=== PATIENT | female | born 1975 | race Caucasian/White ===

== ENCOUNTER → 2020-04-17 16:38 | Outpatient (REF) | payer OTHER, SELFPAY | LOC: ANHLAB 16:38 | PROVIDERS: PCP Family Medicine; Visit Provider Nurse Practitioner Family | DX: D22.5 Melanocytic nevi of trunk (principal) | CPT/HCPCS: 88305 ==

== ENCOUNTER → 2020-05-31 15:56 | Outpatient (CLI) | payer OTHER, SELFPAY ==
--- NOTE | ~2020-05-31 | MM_ITS ---
EXAMINATION: MM scrn rosa implant BI w manuela HISTORY: Screening mammogram TECHNIQUE: Craniocaudal and mediolateral oblique 3-D tomosynthesis images with implant displacement a nd synthetic 2-D images were generated. Craniocaudal and mediolateral oblique views of the breasts wi thout implant displacement were obtained using full field digital mammography. CAD analysis was submi tted and interpreted. COMPARISON: Comparison to multiple prior studies sequentially, with oldest reviewed study dated 12/2010. BREAST PARENCHYMAL COMPOSITION: There are scattered areas of fibroglandular density. FINDINGS: There are bilateral breast implants. There is no evidence of suspicious mass, calcification , or architectural distortion to suggest malignancy in either breast. There has been no suspicious in terval change. IMPRESSION: 1. No mammographic evidence of malignancy. 2. Recommend routine screening mammography in one year. BI-RADS Category 1: Negative Reviewed, dictated and finalized at location A.
== END ==
PROVIDERS: Visit Provider Obstetrics & Gynecology
DX: Z12.31 Encounter for screening mammogram for malignant neoplasm of breast (principal)
CPT/HCPCS: 77063; 77067

== ENCOUNTER → 2021-02-03 15:51 | Outpatient (REF) | payer OTHER, SELFPAY | LOC: ANHLAB 15:51 | PROVIDERS: PCP Family Medicine; Visit Provider Nurse Practitioner | DX: D22.5 Melanocytic nevi of trunk (principal) | CPT/HCPCS: 88305 ==

== ENCOUNTER → 2021-04-21 00:37 | Outpatient (CLI) | payer OTHER, SELFPAY | PROVIDERS: Visit Provider Obstetrics & Gynecology | DX: Z01.812 Encounter for preprocedural laboratory examination (principal); Z20.822 Contact with and (suspected) exposure to COVID-19 | CPT/HCPCS: C9803; U0003; U0005 ==

== ENCOUNTER 2021-04-21 08:15 | Outpatient (CLI) | payer OTHER, SELFPAY | END 2021-04-21 08:16 | disposition home or self-care (01) | PROVIDERS: Visit Provider Obstetrics & Gynecology | DX: N92.1 Excessive and frequent menstruation with irregular cycle (principal); Z01.818 Encounter for other preprocedural examination | CPT/HCPCS: 36415; 86850; 86900; 86901 ==

== ENCOUNTER 2021-04-23 00:43 | Day surgery (SDC) | payer OTHER, SELFPAY ==
[2021-04-09 10:47] VITALS: BMI 23.1
[2021-04-23] VITALS (14 sets, daily range): BP systolic 102–130; BP diastolic 63–81; PULSE 51–72; RESP 12–20; TEMP 36.3–36.4; O2SAT 96–100; BMI 23.6
--- NOTE | 2021-04-23 10:16 | PM.IMHP ---
H&P: HPI History of Present Illness Date/Time: 04/23/21 10:16 45-year-old 2 para 2002 female presents with complaints of menstrual cycles lasting 5-7 days 3-5 days heavy clotting cramping to the point of bleeding through her clothes and sheets at night. This has been affecting her lifestyle on unable to continue with her normal daily activities. She has been on control pills which did help for a short appeared of time but they are no longer helping. Ultrasound revealed mildly enlarged uterus but no other specific abnormalities. We did discuss other issues and other treatments but she does tired desire to proceed with definitive therapy in the form of hysterectomy. Chief Complaint: Menometrorrhagia Review of Systems Review of Systems: All systems reviewed & are unremarkable except as noted in HPI and below PMFSH Past Medical History Medical History Anxiety BMI 24.0-24.9, adult IBS (irritable bowel syndrome) Surgical History Surgical History History of breast augmentation 2002 History of delivery 2008 History of cholecystectomy 1994 History of tubal ligation 2013 Family History Family History Mother Diabetes mellitus Hypertension Father Diabetes mellitus Hypertension Sibling No problems noted. 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 Gender identity (if verbalized by the patient): Female Spiritual care concerns: No Meds Home Medications and Allergies Home Medications Medication Instructions Recorded Confirmed Type phentermine 37.5 mg tablet 37.5 mg PO DAILY #20 tablet 03/26/21 04/09/21 Rx buspirone 10 mg PO BID 04/09/21 04/09/21 History linaclotide [Linzess] 290 mcg PO DAILY 04/09/21 04/09/21 History multivitamin 1 tablet PO DAILY 04/09/21 04/09/21 History norgestimate-ethinyl estradiol 2 tablet PO HS 04/09/21 04/09/21 History [Estarylla] Allergies Allergy/AdvReac Type Severity Reaction Status Date / Time codeine Allergy Unknown Nausea Verified 04/23/21 10:19 Exam Const: General: cooperative and healthy appearing Resp: Effort & Inspection: normal respiratory effort Auscultation: clear to auscultation bilaterally Cardio: Rate: regular rate Rhythm: regular rhythm GI: Inspection: normal to inspection : External Female Exam: normal external appearance Speculum Exam - Cervix: Cervical os closed Bimanual exam- vagina & uterus: normal bimanual exam and enlarged ( 10-12 week size) Bimanual Exam- Adnexa, other: normal adnexae Assessment and Plan Assessment and plan (1) Menometrorrhagia: Code(s): N92.1 - Excessive and frequent menstruation with irregular cycle Status: Acute (2) Enlarged uterus: Code(s): N85.2 - Hypertrophy of uterus Status: Acute Additional Plan 1. Proceed with robotic assisted hysterectomy. Due to prior section we have discussed the potential for bladder damage with repair intraoperatively and or conversion to open procedure though this would be unlikely.
--- NOTE | 2021-04-23 10:20 | WPDHPUPDATE1 ---
History and Physical Update Update Date/Time: 04/23/21 10:20 History and Physical has been reviewed, including an updated exam of the patient. There are NO changes in the patient's condition. Risks, benefits, and alternatives have been discussed and questions answered. Patient agrees to proceed with procedure.
[2021-04-23] MEDS: LACTATED RINGERS 1,000 ML 30 ML IV CONT ×2 (10:36→14:05)
[2021-04-23] MEDS: KETOROLAC 15 MG/ML VIAL (*BKC) IV PUSH (10:37)
[2021-04-23] MEDS: ACETAMINOPHEN 500 MG TABLET 1000 MG PO (10:37)
--- NOTE | 2021-04-23 10:49 | SUR.PREOP ---
DR FLETCHER INTO SEE PT. SIG OTHER AT BEDSIDE. BOTH AWARE THAT SURGERY IS DELAYED APPROX 30 MINUTES.
--- NOTE | 2021-04-23 11:19 | WPDANESEPPF ---
Anes - Initial Pre Proc Eval Procedure: Operation Date: 04/23/21 12:00 Proposed Procedures p Robotic Assisted Total Laparoscopic Hysterectomy - Yogi Lazo MD Date/Time: 04/23/21 11:19 Surgeon: Yogi Lazo MD Pre Op Diagnosis: menometrorrhagia Patient Data Age: 45 Gender: F Height: 1.63 m Weight: 62.5 kg Last Vital Signs Temp 97.6 F 04/23/21 10:46 Pulse 72 04/23/21 10:46 Resp 16 04/23/21 10:46 BP 130/81 04/23/21 10:46 Pulse Ox 99 04/23/21 10:46 Allergies Allergy/AdvReac Type Severity Reaction Status Date / Time codeine AdvReac Unknown Nausea Verified 04/23/21 10:49 Home Medications Medication Instructions Recorded Confirmed Type phentermine 37.5 mg tablet 37.5 mg PO DAILY #20 tablet 03/26/21 04/23/21 Rx buspirone 10 mg PO BID 04/09/21 04/23/21 History linaclotide [Linzess] 290 mcg PO DAILY 04/09/21 04/23/21 History multivitamin 1 tablet PO DAILY 04/09/21 04/23/21 History norgestimate-ethinyl estradiol 2 tablet PO HS 04/09/21 04/23/21 History [Estarylla] Patient hx anesthesia problems: post op nausea/vomiting Family hx anesthesia problems: none PMFSH Past Medical History Medical History Anxiety BMI 24.0-24.9, adult IBS (irritable bowel syndrome) Surgical History Surgical History History of breast augmentation 2003 History of delivery 2009 History of cholecystectomy 1994 History of tubal ligation 2013 Family History Family History Mother Diabetes mellitus Hypertension Father Diabetes mellitus Hypertension Sibling No problems noted. 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 Questions were solicited and answers provided to the satisfaction of the patient/family/POA.
[2021-04-23] MEDS: SCOPOLAMINE 1.5 MG PATCH TRANSDERM (11:24)
[2021-04-23] MEDS: ceFAZolin 2 GM/D5W 50 ML 2 GM/50 ML BAG IVPB (12:29)
--- NOTE | 2021-04-23 13:50 | PM.OP ---
Procedure Note - Brief Procedure Note - Brief Date of procedure: 04/23/21 Pre-op diagnosis: menometrorrhagia 2. Enlarged uterus Post-op diagnosis: same Procedure performed: 1. Robotic assisted laparoscopic hysterectomy with ovarian preservation Description of procedure: Patient prepped and draped in usual manner for this procedure. Cervical was replaced for uterine mobility later in the place. Abdominal trocar sites were marked and placed under direct visualization. At trocars then tested the Aimee system instruments were placed without difficulty. Enlarged uterus was noted. Round ligaments cauterized and cut bladder flap developed posterior leaf of the broad ligament was also incised to skeletonize the uterine vessels. Utero-ovarian ligament was cauterized and cut to allow the ovary to fall out of the operative field posterior leafs of the broad ligament was also incised posteriorly to separate. Uterine vessels were then were skeletonized cauterized and cut. Posterior cul-de-sac was then entered and this was carried circumferentially to separate the cervix from the vagina. Uterus was delivered into the vagina and the cuff was then closed using V Lock suture from the right angle midline and left angle midline with good approximation and hemostasis noted. Irrigation was undertaken with no bleeding. Nabeel was placed empirically over the vaginal cuff. This point the gas allowed to escape incisions approximated using 4 Monocryl after the trocars removed. Anesthesia: GETA Surgeon: Yogi Lazo MD Drains: No Packing: No Pathology: yes Complications: No immediate complications Disposition: PACU Findings: 1. Enlarged uterus 2. Minimal adhesions of the bladder to the anterior cervix. 3. Ovaries without abnormality and tubes with evidence of prior tubal ligation.
[2021-04-23] MEDS: fentaNYL CITRATE INJ (*CRX) 100 MCG/2 ML VIAL 25 MCG IV PUSH ×4 (14:25→15:06)
--- NOTE | 2021-04-23 15:53 | PC.NURSE ---
This patient, Danyelle Mcmillan, was received from PACU per bed ] on 04/23/21 at 1553. Patient/family oriented to unit policies and routines
[2021-04-23] MEDS: DEXTROSE 5%/LACTATED RINGERS 1,000 ML 125 ML IV CONT (16:15)
[2021-04-23] MEDS: KETOROLAC 30 MG/ML VIAL (*BKC) IV PUSH ×2 (16:16→22:55)
[2021-04-23] MEDS: HYDROcodone/acetaminophen (*CRX) 10-325 MG TABLET 1 TAB PO ×2 (17:33→20:54)
[2021-04-23] MEDS: ONDANSETRON INJ 4 MG/2 ML VIAL IV PUSH (18:50)
[2021-04-23] MEDS: busPIRone HCL 10 MG TABLET PO (20:54)
--- NOTE | 2021-04-23 21:55 | PC.NURSE ---
Assisted pt to restroom where she was only able to void 50ml nayeli urine at this time. Pt declines wanting to have a bladder scan at this time stating she feels much better after ambulating to restroom and voiding. Pt is tolerating po fluids with no vomitting thus far after receiving iv zofran for some nausea earlier in the shift. No bladder distention noted at this time. IVF's continue at this time and encouraged po intake as tolerated. Will continue to monitor.
[2021-04-24] VITALS: PULSE 64; RESP 16; O2SAT 97
[2021-04-24] MEDS: HYDROcodone/acetaminophen (*CRX) 10-325 MG TABLET 1 TAB PO ×4 (00:01→13:26)
[2021-04-24 00:16] VITALS: BP 101/69; PULSE 64; RESP 16; TEMP 36.7; O2SAT 97
[2021-04-24] MEDS: DEXTROSE 5%/LACTATED RINGERS 1,000 ML 125 ML IV CONT (00:37)
[2021-04-24 04:30] VITALS: BP 101/70; PULSE 62; RESP 16; TEMP 36.7; O2SAT 95
[2021-04-24] MEDS: ONDANSETRON INJ 4 MG/2 ML VIAL IV PUSH (04:50)
[2021-04-24] MEDS: IBUPROFEN 600 MG TABLET PO ×2 (04:51→13:27)
[2021-04-24] MEDS: SIMETHICONE 80 MG TAB.CHEW PO ×3 (04:51→13:28)
[2021-04-24 05:23] LABS: Basophils Percent Auto 0.4 % (0.2-1.2); Eosinophils Percent Auto 0.4 % (0-4.4); Hematocrit 34.9 % (37.0-47.0); Hemoglobin 11.6 g/dL (12.0-15.0); Immature Granulocyte Absolute 0.02 K/mm3 (0.00-0.031); Immature Granulocyte Percent A 0.2 % (0-0.5); Lymphocytes Absolute Auto 0.76 K/mm3 (0.9-3.2); Lymphocytes Percent Auto 9.3 % (18.3-44.2); Mean Corpuscular HGB Conc 33.2 g/dl (32-36); Mean Corpuscular Hemoglobin 30.3 pg (26-34); Mean Corpuscular Volume 91.1 fl (80-100); Monocytes Absolute Auto 0.5 K/mm3 (0.1-0.6); Monocytes Percent Auto 5.8 % (2.6-8.5); Neutrophils Absolute Auto 6.9 K/mm3 (1.3-6.7); Neutrophils Percent Auto 83.9 % (45.5-73.1); Platelet Count Result 257 k/mm3 (150-375); Red Blood Count 3.83 M/mm3 (4.2-5.4); Red Cell Distribution Width 12.9 % (11.5-14.5); White Blood Count 8.2 K/mm3 (4.5-10.0)
--- NOTE | 2021-04-24 06:39 | PM.DS ---
DS: Admitting Diagnosis Admitting Diagnosis Admitting Diagnosis: menometorrhagia DS: Discharge Diagnosis Discharge Diagnosis (1) Menometrorrhagia: Code(s): N92.1 - Excessive and frequent menstruation with irregular cycle Status: Acute DS: Summary Hospital Course Hospital Course: POD 1. No bleed or sig pain. Some RUQ irritation. Surgical site pain minimal. Exam benign Time Spent with Patient Time attestation: Total time spent providing and/or coordinating discharge services: DS: Data Data Completed and Pending Pending studies at discharge: Pending at discharge 04/23/21 13:34 Surgical [PTH] Routine Labs on day of discharge: Labs from last 24 hours 04/24/21 04:59 WBC 8.2 RBC 3.83 L Hgb 11.6 L Hct 34.9 L MCV 91.1 MCH 30.3 MCHC 33.2 RDW 12.9 Plt Count 257 MPV 10.0 Immature Gran % (Auto) 0.2 Neut % (Auto) 83.9 H Lymph % (Auto) 9.3 L [place] % (Auto) 5.8 Eos % (Auto) 0.4 Baso % (Auto) 0.4 Lymph # (Auto) 0.76 L [place] # (Auto) 0.5 Eos # (Auto) 0.0 Baso # (Auto) 0.0 Abs Immat Gran (auto) 0.02 Absolute Neuts (auto) 6.9 H Absolute Nucleated RBC 0.0 Nucleated RBC % 0.0 Discharge Plan Discharge Patient Disposition: Home, Self-Care Stand Alone Forms: General Discharge Instructions Follow-up/Referrals: Yogi Lazo MD [Physician] - 2 Weeks Discharge Medications: New hydrocodone-acetaminophen 5-325 mg Tablet 1 tablet PO Q3H Qty: 30 RF: 0 ibuprofen 600 mg Tablet 600 mg PO Q6H Qty: 30 RF: 0 Continued multivitamin Tablet 1 tablet PO DAILY RF: 0 buspirone 10 mg tablet 10 mg PO BID RF: 0 Linzess 290 mcg capsule 290 mcg PO DAILY RF: 0 phentermine 37.5 mg tablet 37.5 mg PO DAILY Qty: 20 RF: 0 Discontinued norgestimate-ethinyl estradiol [Estarylla] 0.25-35 mg-mcg tablet 2 tablet PO HS RF: 0
[2021-04-24 07:50] VITALS: PULSE 86; RESP 22; O2SAT 98
--- NOTE | 2021-04-24 08:38 | WPDANESPN ---
Anes - Prog Note Post-Op Date/Time: 04/24/21 08:38 Cardiovascular status: normal Respiratory status: normal Airway patency: baseline Mental status: baseline Post-Op hydration status: normal Vital Signs: Last Vital Signs Temp 36.7 C 04/24/21 04:30 Pulse 62 04/24/21 04:30 Resp 16 04/24/21 04:30 BP 101/70 04/24/21 04:30 Pulse Ox 95 04/24/21 04:30 Pain Score (VAS): 0/10. Patient resting in bed at time of assessment, appears comfortable. Pt complaint of mild nausea with relief with PRN meds. I/O: Intake & Output 04/23/21 04/24/21 04/24/21 23:59 07:59 15:59 Intake Total 410 2240 Output Total 50 350 Balance 360 1890 Laboratory Tests 04/24/21 04:59 04/24/21 04:59 WBC 8.2 RBC 3.83 L Hgb 11.6 L Hct 34.9 L MCV 91.1 MCH 30.3 MCHC 33.2 RDW 12.9 Plt Count 257 MPV 10.0 Immature Gran % (Auto) 0.2 Neut % (Auto) 83.9 H Lymph % (Auto) 9.3 L [place] % (Auto) 5.8 Eos % (Auto) 0.4 Baso % (Auto) 0.4 Lymph # (Auto) 0.76 L [place] # (Auto) 0.5 Eos # (Auto) 0.0 Baso # (Auto) 0.0 Abs Immat Gran (auto) 0.02 Absolute Neuts (auto) 6.9 H Absolute Nucleated RBC 0.0 Nucleated RBC % 0.0 Post-procedural complaints: nausea (mild, relief with prn meds. ) Patient Feedback: Patient satisfied with anesthetic care.
[2021-04-24 08:51] VITALS: BP 103/74; PULSE 86; RESP 22; TEMP 36.7; O2SAT 98
[2021-04-24] MEDS: DOCUSATE SODIUM 100 MG CAPSULE (10:11)
[2021-04-24] MEDS: busPIRone HCL 10 MG TABLET PO (10:12)
== END 2021-04-24 13:45 | disposition home or self-care (01) ==
LOC: ANHSURGERY 14:59 → ANHOB2 16:14
PROVIDERS: PCP Family Medicine; Visit Provider Obstetrics & Gynecology
PROC: (CPT 58570; principal; 2021-04-23 12:00)
DX: N92.1 Excessive and frequent menstruation with irregular cycle (principal); N80.0 Endometriosis of uterus; D25.1 Intramural leiomyoma of uterus; D25.2 Subserosal leiomyoma of uterus; N73.6 Female pelvic peritoneal adhesions (postinfective); K58.9 Irritable bowel syndrome, unspecified; F41.9 Anxiety disorder, unspecified; Z87.891 Personal history of nicotine dependence
CPT/HCPCS: 58570; S2900; 36415; 85025; 86850; 86900; 86901; 88307; 99199; A9270; J0690; J1100; J1170; J1885; J2250; J2405; J2704; J2710; J3010; J7030; J7120; J7121

== ENCOUNTER → 2021-06-02 16:33 | Outpatient (CLI) | payer OTHER, SELFPAY ==
--- NOTE | ~2021-06-02 | MM_ITS ---
EXAMINATION: MM scrn rosa implant BI w manuela HISTORY: Screening mammogram TECHNIQUE: Craniocaudal and mediolateral oblique 3-D tomosynthesis images with implant displacement a nd synthetic 2-D images were generated. Craniocaudal and mediolateral oblique views of the breasts wi thout implant displacement were obtained using full field digital mammography. CAD analysis was submi tted and interpreted. COMPARISON: Comparison to multiple prior studies sequentially, with oldest reviewed study dated 09/02. BREAST PARENCHYMAL COMPOSITION: Breast composed of scattered areas of fibroglandular density FINDINGS: There is no evidence of suspicious mass, calcification, or architectural distortion to sugg est malignancy in either breast. There has been no suspicious interval change. IMPRESSION: 1. No mammographic evidence of malignancy. 2. Recommend routine screening mammography in one year. BI-RADS Category 1: Negative Reviewed, dictated and finalized at location A.
== END ==
PROVIDERS: Visit Provider Obstetrics & Gynecology
DX: Z12.31 Encounter for screening mammogram for malignant neoplasm of breast (principal)
CPT/HCPCS: 77063; 77067

== ENCOUNTER → 2022-09-09 17:01 | Outpatient (CLI) | payer OTHER, SELFPAY ==
--- NOTE | ~2022-09-09 | MM_ITS ---
EXAMINATION: MM scrn rosa implant BI w manuela HISTORY: Screening mammogram TECHNIQUE: Craniocaudal and mediolateral oblique 3-D tomosynthesis images with implant displacement a nd synthetic 2-D images were generated. Craniocaudal and mediolateral oblique views of the breasts wi thout implant displacement were obtained using full field digital mammography. CAD analysis was submi tted and interpreted. COMPARISON: 06/02/2021, 05/31/2020, 10/03/2018 bilateral implant screening mammogram examinations BREAST PARENCHYMAL COMPOSITION: There are scattered areas of fibroglandular density. FINDINGS: Status post bilateral augmentation mammoplasty. There is no evidence of suspicious mass, ca lcification, or architectural distortion to suggest malignancy in either breast. There has been no sun spicious interval change. IMPRESSION: 1. No mammographic evidence of malignancy. 2. Recommend routine screening mammography in one year. BI-RADS Category 1: Negative Reviewed, dictated and finalized at location A. CLE BODY SANDER
== END ==
PROVIDERS: PCP Family Medicine; Visit Provider Obstetrics & Gynecology
DX: Z12.31 Encounter for screening mammogram for malignant neoplasm of breast (principal)
CPT/HCPCS: 77063; 77067

== ENCOUNTER 2023-03-15 12:08 | Outpatient (NON) | payer OTHER, SELFPAY | END 2023-03-15 12:09 | disposition home or self-care (01) | LOC: ANHLAB 03-17 12:10 | PROVIDERS: PCP Family Medicine; Visit Provider Nurse Practitioner | DX: D22.5 Melanocytic nevi of trunk (principal) | CPT/HCPCS: 88305 ==

== ENCOUNTER → 2023-09-16 16:29 | Outpatient (CLI) | payer OTHER, SELFPAY ==
--- NOTE | ~2023-09-16 | MM_ITS ---
EXAMINATION: MM scrn rosa implant BI w manuela HISTORY: Screening mammogram TECHNIQUE: Craniocaudal and mediolateral oblique 3-D tomosynthesis images with implant displacement a nd synthetic 2-D images were generated. Craniocaudal and mediolateral oblique views of the breasts wi thout implant displacement were obtained using full field digital mammography. CAD analysis was submi tted and interpreted. COMPARISON: 09/09/2022, 06/02/2021, 05/31/2020 BREAST PARENCHYMAL COMPOSITION: There are scattered areas of fibroglandular density. FINDINGS: There is no evidence of suspicious mass, calcification, or architectural distortion to sugg est malignancy in either breast. There has been no suspicious interval change. IMPRESSION: 1. No mammographic evidence of malignancy. 2. Recommend routine screening mammography in one year. BI-RADS Category 1: Negative Reviewed, dictated and finalized at location A. ING CLEANER
== END ==
PROVIDERS: Visit Provider Obstetrics & Gynecology
DX: Z12.31 Encounter for screening mammogram for malignant neoplasm of breast (principal)
CPT/HCPCS: 77063; 77067

== ENCOUNTER 2024-10-05 15:59 | Outpatient (CLI) | payer OTHER, SELFPAY ==
--- NOTE | ~2024-10-05 | MM_ITS ---
EXAMINATION: MM scrn rosa implant BI w manuela HISTORY: Screening mammogram TECHNIQUE: Craniocaudal and mediolateral oblique 3-D tomosynthesis images with implant displacement a nd synthetic 2-D images were generated. Craniocaudal and mediolateral oblique views of the breasts wi thout implant displacement were obtained using full field digital mammography. CAD analysis was submi tted and interpreted. COMPARISON: Comparison to multiple prior studies sequentially, with oldest reviewed study dated 09/02. BREAST PARENCHYMAL COMPOSITION: Not dense: There are scattered areas of fibroglandular density. FINDINGS: There is no evidence of suspicious mass, calcification, or architectural distortion to sugg est malignancy in either breast. There has been no suspicious interval change. IMPRESSION: 1. No mammographic evidence of malignancy. 2. Recommend routine screening mammography in one year. BI-RADS Category 1: Negative Reviewed, dictated and finalized at location B. ARCH NEUROPSYCHOLOGIST
== END 2024-10-05 16:00 | disposition home or self-care (01) ==
PROVIDERS: PCP Obstetrics & Gynecology; Visit Provider Obstetrics & Gynecology
DX: Z12.31 Encounter for screening mammogram for malignant neoplasm of breast (principal)
CPT/HCPCS: 77063; 77067

== ENCOUNTER 2025-10-10 16:04 | Outpatient (CLI) | payer OTHER, SELFPAY ==
--- NOTE | ~2025-10-10 | MM_ITS ---
EXAMINATION: MM scrn rosa implant BI w manuela HISTORY: Screening. TECHNIQUE: Craniocaudal and mediolateral oblique 3-D tomosynthesis images were obtained and synthetic 2-D images were generated. CAD analysis was submitted and interpreted. COMPARISON: 2023, 2022, and 2021. BREAST PARENCHYMAL COMPOSITION: Dense: The breasts are heterogeneously dense FINDINGS: There is/are prepectoral silicone implants. The presence of implants decreases the sensitivity of mammography. No suspicious masses are seen. There are no suspicious calcifications. No unexplained architectural distortion is seen. There are no skin or nipple abnormalities identified. There is no adenopathy seen on the images submitted. IMPRESSION: No mammographic evidence to suggest malignancy is seen. The patient may return to screening mammography as per ACR guidelines. BI-RADS 1 - Negative. Reviewed, dictated and finalized at location C. 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
== END 2025-10-10 16:05 | disposition home or self-care (01) ==
LOC: MICIMG 16:05
PROVIDERS: PCP Obstetrics & Gynecology; Visit Provider Obstetrics & Gynecology
DX: Z12.31 Encounter for screening mammogram for malignant neoplasm of breast (principal)
CPT/HCPCS: 77063; 77067